=== PATIENT | female | born 1965 | race Caucasian/White ===

== ENCOUNTER 2020-06-07 07:33 | Day surgery (SDC) | payer OTHER ==
[~2020-06-07] VITALS: Ht 167.6 cm; Wt 57.3 kg
[~2020-06-07 07:33] MED LIST: CALCIUM + VITA1 EAC2 PO; CELECOXIB200 MG PO; CYCLOBENZAPRINE10 MG PO; ESTRADIOL MC; HYDROCODON-ACE1 EA11 PO; IBANDRONATE SO150 MG PO; MULTIVITAMINS1 EAC8 PO; ZOFRAN8 MG PO; [UNRECOGNIZED DRUG - OTHER] MC
--- NOTE | 2020-06-07 09:21 | NUR ---
06/07/20 09 Renetta Olmedo 0857 PT ARRIVED IN PACU SLEEPY WITH NO C/O'S. ABD SOFT. [address] AT BEDSIDE TALKING TO PT. 919 AWAKENS TO VERBAL STIMULI AND FALLS BACK TO SLEEP. NO C/O'S.
--- NOTE | 2020-06-09 13:07 | OR ---
[facility] [address] [place], [place] [address] Signed DATE OF OPERATION: 06/07/2020 SURGEON: Colin Zhou MD PREOPERATIVE DIAGNOSIS: History of colonic polyps in [place], [place] in February 2015. POSTOPERATIVE DIAGNOSIS: Normal colon to cecum. PROCEDURE: Total colonoscopy to cecum. ANESTHESIA: Intravenous sedation, fentanyl 150 mcg and Versed 5 mg. INDICATION: This 54-year-old white woman is a patient of Dr. Carline Dumont and [facility] and underwent colonoscopy in [place], [place] on March 08, [address] Mccann. She was noted to have polyps at that time. She had no symptoms of bleeding, diarrhea, or constipation and has no family history of colon cancer. She is admitted to undergo surveillance colonoscopy, understands the risks of bleeding, infection, and perforation. FINDINGS: The prep was excellent. Complete colonoscopy was undertaken to the cecum without question. Appendiceal orifice and ileocecal valve were well identified. There was no evidence of polyps, diverticular formation, colitis, or cancer. DESCRIPTION OF PROCEDURE: The patient was brought to the endoscopy suite and placed in lateral decubitus position, given intravenous sedation to the point of slurred speech and nystagmus. Digital rectal examination was normal. An Olympus video colonoscope was passed in the rectum and manipulated throughout the colon ultimately intubating the cecum itself. The appendiceal orifice was normal. The scope was withdrawn from that point. Examination throughout showed no sign of abnormality specifically no polyps, diverticular formation, colitis, or cancer. Rectum was normal on retroflexed view as well. The scope was removed. The patient was taken to the recovery room in good condition. Electronically Signed By: COLIN ZHOU MD 06/09/20 1307 PATIENT NAME: JEFFRY ELIZALDE OPERATIVE REPORT DATE OF : 61 REPORT #: [id number] PHYSICIAN: COLIN ZHOU MD PCP: COMFORT BURK PAC REPORT IS CONFIDENTIAL AND NOT TO BE RELEASED WITHOUT AUTHORIZATION [facility] [address] [place], [place] [address] Signed CONCLUDING DIAGNOSIS: Normal colon. PLAN: Recommend a repeat colonoscopy in 10 years if patient prefers 5 years based on prior history of polyps that is acceptable also, certainly repeat if symptoms should occur sooner. She will return to the ongoing care of Dr. Dumont and [facility]. MD CAROLINE Murphy/MODL /[id number] cc: MD Comfort Bain PA Copies: CARLINE DUMONT MD ~ Electronically Signed By: COLIN ZHOU MD 06/09/20 1307 PATIENT NAME: JEFFRY ELIZALDE OPERATIVE REPORT DATE OF : 61 REPORT #: [id number] PHYSICIAN: COLIN ZHOU MD PCP: COMFORT BURK PAC REPORT IS CONFIDENTIAL AND NOT TO BE RELEASED WITHOUT AUTHORIZATION
== END 2020-06-07 09:40 | disposition home or self-care (01) ==
LOC: DS 07:33 → OPS 07:33 → DS 08:30 → OPS 08:30
PROVIDERS: ATTEND Surgery
DX: Z12.11 Encounter for screening for malignant neoplasm of colon (principal); K63.89 Other specified diseases of intestine; K21.9 Gastro-esophageal reflux disease without esophagitis; Z78.0 Asymptomatic menopausal state; Z86.010 Personal history of colon polyps
CPT/HCPCS: 99153; G0500; J2250; J3010; J7121

== ENCOUNTER 2022-10-16 07:28 | Day surgery (SDC) | payer OTHER ==
[~2022-10-16] VITALS: Ht 167.6 cm; Wt 59.1 kg
[~2022-10-16 07:28] MED LIST changes: +FLUTICASONE-SAL12 GM INH; +PROLIA60 MG/1 ML SUB-Q; +TOBRADEX EYE DRO5 ML OPTH
[2022-10-16 07:57] VITALS: BP 121/72
--- NOTE | 2022-10-16 08:35 | NUR ---
PT ALERT, ORIENTED AND SUPPORTED BY HER JULIETTE. FIRST EGD FOR PT, GAVE ENCOURAGEMENT AND SUPPORT. PT REQUESTED PRAYER, JULIETTE WILL REMAIN FOR DC. ALL QUESTIONS ASKED ANSWERED. GAVE BLESSING
[2022-10-16 10:08] VITALS: BP 105/66
--- NOTE | 2022-10-16 10:43 | NUR ---
10/16/22 1043 Renetta Olmedo 0912 PT ARRIVED IN PACU SLEEPY. 0930 DR AT BEDSIDE. ALL QUESTIONS ANSWERED. 0945 AWAKENS TO TAKE SIPS OF WATER, THEN FALLS BACK TO SLEEP. 1000 DC INSTRUCTIONS GIVEN. 1017 LEFT VIA W/C. INSTRUCTIONS GIVEN TO SPOUSE AT CAR.
--- NOTE | 2022-10-17 13:19 | OR ---
[facility] [address] [place], [place] [address] Signed DATE OF OPERATION: 10/16/2022 SURGEON: Colin Zhou MD PREOPERATIVE DIAGNOSES: 1. Episodic dysphagia. 2. Known osteoporosis (treated with Prolia). POSTOPERATIVE DIAGNOSES: 1. No evidence of stricture of the esophagus; good flap valve. 2. Questionable felinization of midesophagus. PROCEDURE: Esophagogastroduodenoscopy with biopsy. ANESTHESIA: Intravenous sedation; fentanyl 100 mcg and Versed 4 mg. INDICATION: This 57-year-old white woman is a patient of [facility]. She has longstanding history of dysphagia. She was last seen by me in 2019. She had clinical symptoms of gastroesophageal reflux. Her dysphagia is episodic and related primarily to solids including crackers, bread and meat and rice. The patient has taken PPI medication with good effect in the past. She was diagnosed with underlying osteoporosis and discontinued any PPI medication, though she did not take it for that long. She has been postmenopausal since 2007. She does take Prolia injection every six months, but ingestion of PPI medication on the basis of her osteoporosis. She is admitted at this time to undergo upper endoscopy and possible dilation depending on operative findings. The risk of bleeding, infection, perforation, and so forth were reviewed with her in detail. She understands and wished to proceed. FINDINGS: There was no evidence of stricture. Her flap valve was optimal. There was no evidence of underlying esophagitis particularly. The midesophagus did have a corrugated appearance to a degree suggestive though not diagnostic of the eosinophilic esophagitis. On the basis of lack of findings, the dilation was not undertaken today. Biopsies were taken throughout to assess for eosinophilic esophagitis and other abnormalities. DESCRIPTION OF PROCEDURE: The patient was brought to surgical endoscopy suite and placed in the lateral decubitus Electronically Signed By: COLIN ZHOU MD 10/17/22 3559 PATIENT NAME: JEFFRY ELIZALDE OPERATIVE REPORT DATE OF : 61 REPORT #: [id number] PHYSICIAN: COLIN ZHOU MD PCP: CORBIN COTTON MD REPORT IS CONFIDENTIAL AND NOT TO BE RELEASED WITHOUT AUTHORIZATION [facility] [address] [place], [place] [address] Signed position. She was given lidocaine hypopharyngeal anesthesia. After intravenous sedation was induced with full cardiopulmonary monitoring, a bite block was placed. An Olympus video upper endoscope was passed in the hypopharynx. The vocal cords were visualized as normal. The scope was advanced to the esophagus. The midportion had a somewhat corrugated appearance, though not of an advanced degree. The distal esophagus showed no evidence of stricture in any way and no Kelly's epithelium particularly. The scope was advanced into the stomach which was insufflated with air. Rugal folds were normal. The scope was advanced to the pylorus, which was normal and into the duodenum. The duodenum also appeared normal. Biopsies were obtained there. The scope was withdrawn and biopsies taken of the antrum for both MELISSA and pathologic testing. Retroflexed view and withdrawal of the scope showed impressively good flap valve with no evidence whatsoever of hiatal hernia or other abnormality. The scope was straightened and withdrawn to the distal esophagus. The mucosa appeared normal. Biopsies were obtained. Scope was withdrawn to the mid esophagus and multiple biopsies were taken there to assess for eosinophilic esophagitis. The scope was then withdrawn and removed and the patient was taken to the recovery room in good condition. CONCLUDING DIAGNOSIS: Her dysphagia is of uncertain etiology. She does not take PPI medication due to her underlying fear of her osteoporosis issue. She is variable at taking H2 blockers. If the eosinophilic esophagitis is noted on biopsies, then topical steroid and acid reduction therapy would be beneficial obviously. We will await pathology reports before initiating any therapy, but it would be safe and I believe effective for her to at least initiate H2 allison. Current knowledge regarding safety of PPI medication in relation to osteoporosis is evolving; hazards of worsening of osteoporosis are more limited than previously thought. We will see her back in the office and review the findings in detail and outline a treatment plan based on the biopsy results. MD CAROLINE Murphy/MODL /[id number] cc: Leatha Peng PA-C Electronically Signed By: COLIN ZHOU MD 10/17/22 1319 PATIENT NAME: JEFFRY ELIZALDE OPERATIVE REPORT DATE OF : 61 REPORT #: [id number] PHYSICIAN: COLIN ZHOU MD PCP: CORBIN COTTON MD REPORT IS CONFIDENTIAL AND NOT TO BE RELEASED WITHOUT AUTHORIZATION [address] [address] Signed Copies: LEATHA PENG ~ Electronically Signed By: COLIN ZHOU MD 10/17/22 1319 PATIENT NAME: JEFFRY ELIZALDE ANN OPERATIVE REPORT DATE OF : 61 REPORT #: [id number] PHYSICIAN: COLIN ZHOU MD PCP: CORBIN COTTON MD REPORT IS CONFIDENTIAL AND NOT TO BE RELEASED WITHOUT AUTHORIZATION
--- NOTE | 2022-10-19 17:26 | PATH ---
[facility] [address] [place], [place] [address] Signed SPECIMEN(S): A DUODENAL BIOPSY SPECIMEN(S): B ANTRUM/PYLORUS BIOPSY SPECIMEN(S): C DISTAL ESOPHAGEAL BIOPSY SPECIMEN(S): D MID ESOPHAGEAL BIOPSY SPECIMEN SOURCE: A. DUODENAL BIOPSY B. ANTRUM/PYLORUS BIOPSY C. DISTAL ESOPHAGEAL BIOPSY D. MID ESOPHAGEAL BIOPSY CLINICAL HISTORY: GERD with esophagitis; esophageal dysphagia. Post: Possible eosinophilic esophagitis FINAL PATHOLOGIC DIAGNOSIS: A. Duodenum, biopsy: - Duodenal mucosa with normal villous architecture. - Negative for acute, chronic, and granulomatous inflammation. - Negative for dysplasia and malignancy. B. Stomach, antrum and pylorus, biopsy: - Non-acid secreting gastric mucosa with mild to focally moderate chronic inflammation. - Single microscopic focus of active inflammation. - Negative for H. pylori organisms by immunohistochemistry. - Negative for intestinal metaplasia, dysplasia, and malignancy. C. Distal esophagus, biopsy: - Stratified squamous esophageal mucosa with mild congestion in the rete peg vessels. - Negative for acute, chronic, and eosinophilic inflammation. - Negative for dysplasia and malignancy. - No glandular epithelium identified. D. Mid esophagus, biopsy: - Stratified squamous esophageal mucosa with slight reflux esophagitis. - Eosinophils identified at an average frequency of 2 per high-power field. - Negative for dysplasia and malignancy. SDL:mfr:C2NR MICROSCOPIC EXAMINATION: Histologic sections of all submitted blocks are examined by light microscopy. PATIENT NAME: JEFFRY ELIZALDE ANN PATHOLOGY DATE OF : 61 REPORT #: [id number] PHYSICIAN: ORION COOK PCP: CORBIN COTTON MD REPORT IS CONFIDENTIAL AND NOT TO BE RELEASED WITHOUT AUTHORIZATION [facility] [address] [place], [place] [address] Signed These findings, together with the gross examination, support the pathologic diagnosis. GROSS DESCRIPTION: A. The specimen, labeled and designated "Elizalde, J, 1." and designated on the requisition "duodenum biopsy," is received in formalin and consists of two swift soft tissue fragments that measure 0.4 and 0.7 cm in greatest dimension. The specimen is entirely submitted in (A1). B. The specimen, labeled and designated "Elizalde, J, 2." and designated on the requisition "antrum/pylorus biopsy," is received in formalin and consists of two swift soft tissue fragments that measure 0.5 and 0.6 cm in greatest dimension. The specimen is entirely submitted in (B1). C. The specimen, labeled and designated "Elizalde, J, 3." and designated on the requisition "distal esophagus biopsy," is received in formalin and consists of two white-swift soft tissue fragments that measure 0.6 and 0.7 cm in greatest dimension. The specimen is entirely submitted in (C1). D. The specimen, labeled and designated "Elizalde, J, 4." and designated on the requisition "mid esophagus biopsy," is received in formalin and consists of six white-swift soft tissue fragments that measure 0.2 to 0.7 cm in greatest dimension. The specimen is entirely submitted in (D1). FB (under the direct supervision of a pathologist) The Gross Description was prepared using a voice recognition system. The report was reviewed for accuracy; however, sound-alike word errors, addition and/or deletions may occur. If there are any questions about this report, please contact Client Services. ADDITIONAL NOTES: Immunohistochemical and/or in situ hybridization studies were performed on this case with the appropriate positive controls that react as expected. This test was developed and its performance characteristics determined by [facility]. It has not been cleared or approved by the U.S. Food and Drug Administration. The FDA has determined that such clearance or approval is not necessary. This test is used for clinical purposes. It should not be regarded as investigational or for research. [facility] is certified under the Clinical Laboratory Improvement Amendments of 1988 (CLIA) as qualified to perform high complexity clinical laboratory testing. This assay has not been validated for specimens that have PATIENT NAME: JEFFRY ELIZALDE PATHOLOGY DATE OF : 61 REPORT #: [id number] PHYSICIAN: ORION COOK PCP: CORBIN COTTON MD REPORT IS CONFIDENTIAL AND NOT TO BE RELEASED WITHOUT AUTHORIZATION [address] [address] Signed been decalcified. PERFORMING LABORATORY: The technical component was performed by [facility], [address] [place] [id number] (CLIA# [id number]). Professional interpretation was performed by [facility], [address] [place] [id number] (CLIA#: [id number]). Diagnostician: Loren Wall MD Pathologist Electronically Signed 10/19/2022 Copies: ~ PATIENT NAME: JEFFRY ELIZALDE ANN PATHOLOGY DATE OF : 61 REPORT #: [id number] PHYSICIAN: [facility]ION PATHOLOGY PCP: CORBIN COTTON MD REPORT IS CONFIDENTIAL AND NOT TO BE RELEASED WITHOUT AUTHORIZATION
== END 2022-10-16 10:17 | disposition home or self-care (01) ==
LOC: OPS 07:28 → DS 07:30 → OPS 08:30 → DS 08:30 → OPS 10:17
PROVIDERS: ATTEND Surgery
PROC: 0DB78ZX Excision of Stomach, Pylorus, Via Natural or Artificial Opening Endoscopic, Diagnostic (ICD-10-PCS; 2022-10-16)
PROC: 0DB28ZX Excision of Middle Esophagus, Via Natural or Artificial Opening Endoscopic, Diagnostic (ICD-10-PCS; 2022-10-16)
PROC: 0DB38ZX Excision of Lower Esophagus, Via Natural or Artificial Opening Endoscopic, Diagnostic (ICD-10-PCS; 2022-10-16)
PROC: 0DB98ZX Excision of Duodenum, Via Natural or Artificial Opening Endoscopic, Diagnostic (ICD-10-PCS; principal; 2022-10-16 08:30)
DX: R13.19 Other dysphagia (principal); K21.00 Gastro-esophageal reflux disease with esophagitis, without bleeding; M81.0 Age-related osteoporosis without current pathological fracture; K29.50 Unspecified chronic gastritis without bleeding; Z79.899 Other long term (current) drug therapy
CPT/HCPCS: 99153; G0500; J2250; J3010; J7121